=== PATIENT | female | born 1985 | race Two or more races ===

== ENCOUNTER 2021-04-05 15:55 | Emergency (ER) | payer OTHER ==
[~2021-04-05] VITALS: Ht 157.5 cm; Wt 54.4 kg
== END 2021-04-05 19:07 | disposition home or self-care (01) ==
LOC: ER 15:55
DX: S80.01XA Contusion of right knee, initial encounter (principal); S90.01XA Contusion of right ankle, initial encounter; W03.XXXA Other fall on same level due to collision with another person, initial encounter; Y93.01 Activity, walking, marching and hiking; Y92.89 Other specified places as the place of occurrence of the external cause; Y99.8 Other external cause status